=== PATIENT | female | born 1950 | race Caucasian/White ===

== ENCOUNTER → 2016-05-15 | Outpatient (REF) | payer BC ==
[2016-05-15 12:37] LABS: ALBUMIN 3.9 GM/DL (3.2-5.2); ALKALINE PHOSPHATASE 77 U/L (45-117); ALT/SGPT 25 U/L (12-78); ANION GAP 5 MEQ/L (8-16); AST/SGOT 10 U/L (15-37); BASO % 0.3 % (0.0-1.0); BILIRUBIN,TOTAL 0.5 MG/DL (0.2-1.0); BLOOD UREA NITROGEN 15 MG/DL (7-18); CALCIUM LEVEL 9.2 MG/DL (8.8-10.2); CARBON DIOXIDE LEVEL 29 MEQ/L (21-32); CHLORIDE LEVEL 108 MEQ/L (98-107); CREATININE FOR GFR 0.82 MG/DL (0.55-1.02); EOS # 0.1 K/mm3 (0.0-0.50); EOS % 3.2 % (0.0-3.0); GLOMERULAR FILTRATION RATE > 60.0 (>45); GLUCOSE, FASTING 96 MG/DL (80-110); LARGE UNSTAINED CELL # 0.1 K/mm3 (0.0-0.4); LYMPH # 1.5 K/mm3 (1.5-4.5); LYMPH % 34.9 % (24.0-44.0); MAGNESIUM LEVEL 1.8 MG/DL (1.8-2.4); MEAN CORPUSCULAR HEMOGLOBIN 31.7 pg (27.0-33.0); MEAN CORPUSCULAR HGB CONC 32.8 g/dl (32.0-36.5); MEAN CORPUSCULAR VOLUME 96.8 fl (80.0-96.0); MONO # 0.3 K/mm3 (0.0-0.8); MONO % 6.5 % (0.0-5.0); NEUTROPHILS # 2.2 K/mm3 (1.8-7.7); NEUTROPHILS % 52.1 % (36.0-66.0); PLATELET COUNT, AUTOMATED 229 k/mm3 (150-450); POTASSIUM SERUM 4.5 MEQ/L (3.5-5.1); RED CELL DISTRIBUTION WIDTH 12.3 % (11.5-14.5); SODIUM LEVEL 142 MEQ/L (136-145); TOTAL PROTEIN 6.5 GM/DL (6.4-8.2); WHITE BLOOD COUNT 4.2 K/mm3 (4.0-10.0)
== END ==
LOC: M SFHCPLAZ 08:26
PROVIDERS: ATTEND Family Medicine
DX: I10 Essential (primary) hypertension (principal)

== ENCOUNTER → 2016-11-08 | Outpatient (REF) | payer BC ==
[2016-11-08 13:18] LABS: VITAMIN B12 LEVEL 391 PG/ML (247-911)
[2016-11-08 13:29] LABS: ALBUMIN 3.5 GM/DL (3.2-5.2); ALBUMIN/GLOBULIN RATIO 1.17 (1.00-1.93); ALKALINE PHOSPHATASE 77 U/L (45-117); ALT/SGPT 24 U/L (12-78); ANION GAP 8 MEQ/L (8-16); AST/SGOT 9 U/L (15-37); BILIRUBIN,TOTAL 0.5 MG/DL (0.2-1.0); BLOOD UREA NITROGEN 14 MG/DL (7-18); CALCIUM LEVEL 9.4 MG/DL (8.8-10.2); CARBON DIOXIDE LEVEL 28 MEQ/L (21-32); CHLORIDE LEVEL 109 MEQ/L (98-107); CHOLESTEROL LEVEL 170 MG/DL (<200); CREATININE FOR GFR 0.78 MG/DL (0.55-1.02); GLOMERULAR FILTRATION RATE > 60.0 (>45); GLUCOSE, FASTING 97 MG/DL (80-110); POTASSIUM SERUM 4.5 MEQ/L (3.5-5.1); SODIUM LEVEL 145 MEQ/L (136-145); TOTAL PROTEIN 6.5 GM/DL (6.4-8.2); TRIGLYCERIDES LEVEL 81 MG/DL (<150)
[2016-11-13 12:29] LABS: ALBUMIN 3.89 GM/DL (3.29-5.55); ALBUMIN % 59.9 % (55.8-66.1)
== END ==
LOC: M SFHCPLAZ 08:25
PROVIDERS: ATTEND Family Medicine
DX: I10 Essential (primary) hypertension (principal); E55.9 Vitamin D deficiency, unspecified; D75.89 Other specified diseases of blood and blood-forming organs

== ENCOUNTER → 2016-11-09 | Outpatient (REF) | payer BC ==
[2016-11-09 12:37] LABS: PRETREATED FOLATE FOR RBCFOL 13.6 NG/ML
== END ==
LOC: M LAB 10:47
PROVIDERS: ATTEND Family Medicine
DX: I10 Essential (primary) hypertension (principal); E55.9 Vitamin D deficiency, unspecified; D75.89 Other specified diseases of blood and blood-forming organs

== ENCOUNTER → 2016-11-19 | Outpatient (CLI) | payer BC ==
--- NOTE | 2016-11-19 14:14 | REP ---
THYROID ULTRASOUND: Real-time sonographic evaluation of the thyroid performed. Comparison 12/04/2013. Both lobes of the thyroid are relatively normal in size, right lobe measuring 4.0 x 1.3 x 1.2 cm and left lobe 4.1 x 1.5 x 1.2 cm. There is a tiny cyst in the right upper pole 3 mm in diameter. Two solid appearing nodules are seen in the mid to lower right lobe, measuring 7 mm in diameter and 8 mm in diameter essentially unchanged compared to the prior exam. There is a solid nodule in the isthmus 7 mm in diameter. There are four solid nodules in the left lobe, the largest is in the mid aspect 1.5 x 0.7 x 1.4 cm similar to the prior study. The other three are subcentimeter in size. IMPRESSION: Similar findings compared to prior study 12/04/2013. Several small nodules are present. The largest are essentially unchanged since the prior ultrasound. Signed by Ortega Tavares MD 11/19/2016 04:12 P
== END ==
LOC: M RAD 12:41
PROVIDERS: ATTEND Family Medicine
DX: E04.2 Nontoxic multinodular goiter (principal)

== ENCOUNTER → 2017-01-02 | Outpatient (CLI) | payer BC ==
--- NOTE | 2017-01-02 09:56 | REPMRS ---
Patient History The patient states she has not had a clinical breast exam in over a year. Patient is postmenopausal. Family history of breast cancer in maternal cousin under age 50. Digital Mammo Screening Bilat: January 02, 2017 - Exam #: [id number] Bilateral CC and MLO view(s) were taken. Technologist: Renetta Coombs, Technologist Prior study comparison: December 08, 2015, bilateral digital mammo screening bilat performed at [facility]. December 06, 2014, bilateral digital mammo screening bilat performed at [facility]. FINDINGS: The breast tissue is heterogeneously dense. This may lower the sensitivity of mammography. There is a fairly symmetric fibroglandular pattern in both breasts. There has been no interval development of masses, areas of architectural distortion or clusters of microcalcifications typical of malignancy. No significant changes when compared with prior studies. ASSESSMENT: BI-RADS/ACR category 2 mammogram. Benign finding(s). Recommendation Routine screening mammogram of both breasts in 1 year (for women over age 40). This mammogram was interpreted with the aid of an FDA-approved computer-aided dectection system. Electronically Signed By: Ortega Tavares MD 01/02/17 0952
== END ==
LOC: M RAD 08:44
PROVIDERS: ATTEND Family Medicine
DX: Z12.31 Encounter for screening mammogram for malignant neoplasm of breast (principal)

== ENCOUNTER → 2017-04-09 | Outpatient (REF) | payer BC ==
[2017-04-09 12:56] LABS: BASO % 0.4 % (0.0-1.0); EOS # 0.2 10^3/uL (0.0-0.50); EOS % 3.8 % (0.0-3.0); HEMATOCRIT 38.6 % (36.0-47.0); IMMATURE GRANULOCYTE % 0.2 % (0-3.0); LYMPH # 1.8 10^3/uL (1.5-4.5); LYMPH % 38.9 % (24.0-44.0); MEAN CORPUSCULAR HEMOGLOBIN 31.8 pg (27.0-33.0); MEAN CORPUSCULAR HGB CONC 33.7 g/dl (32.0-36.5); MEAN CORPUSCULAR VOLUME 94.4 fl (80.0-96.0); MONO # 0.5 10^3/uL (0.0-0.8); NEUTROPHILS # 2.1 10^3/uL (1.8-7.7); NEUTROPHILS % 46.7 % (36.0-66.0); PLATELET COUNT, AUTOMATED 231 10^3/uL (150-450); PTH INTACT 53.1 PG/ML (18.5-88.0); RED BLOOD COUNT 4.09 10^6/uL (4.00-5.40); RED CELL DISTRIBUTION WIDTH 12.4 % (11.5-14.5); TOTAL 25(OH) VITAMIN D 39.5 NG/ML (30.0-100.0); WHITE BLOOD COUNT 4.5 10^3/uL (4.0-10.0)
[2017-04-09 13:01] LABS: ALBUMIN 3.7 GM/DL (3.2-5.2); ALBUMIN/GLOBULIN RATIO 1.32 (1.00-1.93); ALKALINE PHOSPHATASE 72 U/L (45-117); ALT/SGPT 28 U/L (12-78); ANION GAP 8 MEQ/L (8-16); AST/SGOT 21 U/L (7-37); BILIRUBIN,TOTAL 0.8 MG/DL (0.2-1.0); BLOOD UREA NITROGEN 13 MG/DL (7-18); CALCIUM LEVEL 9.5 MG/DL (8.8-10.2); CARBON DIOXIDE LEVEL 29 MEQ/L (21-32); CHLORIDE LEVEL 107 MEQ/L (98-107); CREATININE FOR GFR 0.78 MG/DL (0.55-1.30); GLOMERULAR FILTRATION RATE > 60.0 (>45); GLUCOSE, FASTING 89 MG/DL (70-100); MAGNESIUM LEVEL 1.8 MG/DL (1.8-2.4); POTASSIUM SERUM 4.1 MEQ/L (3.5-5.1); SODIUM LEVEL 144 MEQ/L (136-145); TOTAL PROTEIN 6.5 GM/DL (6.4-8.2)
[2017-04-09 13:36] LABS: ESTIMATED AVERAGE GLUCOSE 103 MG/DL (60-110); HEMOGLOBIN A1c 5.2 %
[2017-04-10 14:14] LABS: INSULIN LEVEL 10.7 uIU/mL (2.6-24.9)
== END ==
LOC: M SFHCPLAZ 08:38
DX: E66.3 Overweight (principal); E55.9 Vitamin D deficiency, unspecified
CPT/HCPCS: 83525

== ENCOUNTER → 2017-09-09 | Outpatient (REF) | payer BC ==
[2017-09-09 11:31] LABS: RETIC HEMOGLOBIN EQUIVALENT 36.8 pg (24-36); RETICULOCYTE # 96.6 10^9/L (17-77); RETICULOCYTE % 2.4 % (0.5-1.5)
[2017-09-09 12:04] LABS: ALBUMIN 3.5 GM/DL (3.2-5.2); ALBUMIN/GLOBULIN RATIO 1.21 (1.00-1.93); ALKALINE PHOSPHATASE 78 U/L (45-117); ALT/SGPT 19 U/L (12-78); ANION GAP 9 MEQ/L (8-16); AST/SGOT 10 U/L (7-37); BILIRUBIN,TOTAL 0.6 MG/DL (0.2-1.0); BLOOD UREA NITROGEN 14 MG/DL (7-18); C REACTIVE PROTEIN QUANTITATIV 0.36 MG/DL (0.00-0.30); CALCIUM LEVEL 9.1 MG/DL (8.8-10.2); CARBON DIOXIDE LEVEL 28 MEQ/L (21-32); CHLORIDE LEVEL 109 MEQ/L (98-107); CHOLESTEROL LEVEL 162 MG/DL (<200); CHOLESTEROL RISK RATIO 3.115 (<5); CPK CREATINE PHOSPHOKINASE 39 U/L (26-192); CREATININE FOR GFR 0.84 MG/DL (0.55-1.30); FREE T4 0.89 NG/DL (0.76-1.46); GLOMERULAR FILTRATION RATE > 60.0 (>45); GLUCOSE, FASTING 96 MG/DL (70-100); HDL CHOLESTEROL 52 MG/DL (>40); LDL CHOLESTEROL 78.8 MG/DL (<100); MAGNESIUM LEVEL 1.9 MG/DL (1.8-2.4); NON-HDL-C 110 MG/DL; POTASSIUM SERUM 4.4 MEQ/L (3.5-5.1); SODIUM LEVEL 146 MEQ/L (136-145); TOTAL PROTEIN 6.4 GM/DL (6.4-8.2); TRIGLYCERIDES LEVEL 156 MG/DL (<150)
== END ==
LOC: M SFHCPLAZ 08:40
DX: I10 Essential (primary) hypertension (principal)
CPT/HCPCS: 82550

== ENCOUNTER 2017-12-06 20:24 | Emergency (ER) | payer BC ==
[2017-12-06] MEDS: ALPRAZolam 0.25 MG TAB PO (22:25)
== END 2017-12-06 23:49 | disposition home or self-care (01) ==
LOC: M ED 20:24
DX: I10 Essential (primary) hypertension (principal); F41.1 Generalized anxiety disorder; Z79.899 Other long term (current) drug therapy
CPT/HCPCS: 93005

== ENCOUNTER → 2018-01-07 | Outpatient (CLI) | payer BC, MEDICARE | LOC: M RAD 09:01 | DX: Z12.31 Encounter for screening mammogram for malignant neoplasm of breast (principal) | CPT/HCPCS: 77067 ==

== ENCOUNTER → 2018-01-28 | Outpatient (REF) | payer BC ==
[2018-01-28 10:51] LABS: ALBUMIN 3.3 GM/DL (3.2-5.2); ALBUMIN/GLOBULIN RATIO 1.03 (1.00-1.93); ALKALINE PHOSPHATASE 83 U/L (45-117); ALT/SGPT 25 U/L (12-78); ANION GAP 4 MEQ/L (8-16); AST/SGOT 11 U/L (7-37); BILIRUBIN,TOTAL 0.6 MG/DL (0.2-1.0); BLOOD UREA NITROGEN 11 MG/DL (7-18); CARBON DIOXIDE LEVEL 30 MEQ/L (21-32); CHLORIDE LEVEL 108 MEQ/L (98-107); CREATININE FOR GFR 0.77 MG/DL (0.55-1.30); GLOMERULAR FILTRATION RATE > 60.0 (>45); GLUCOSE, FASTING 97 MG/DL (70-100); POTASSIUM SERUM 4.9 MEQ/L (3.5-5.1); SODIUM LEVEL 142 MEQ/L (136-145); TOTAL PROTEIN 6.5 GM/DL (6.4-8.2)
[2018-01-28 10:53] LABS: PTH INTACT 76.7 PG/ML (18.5-88.0); TOTAL 25(OH) VITAMIN D 39.4 NG/ML (30.0-100.0)
[2018-01-28 10:55] LABS: APPEARANCE, URINE CLEAR (CLEAR); BACTERIA, URINE AUTO NEGATIVE (NEGATIVE); BILIRUBIN, URINE AUTO NEGATIVE (NEGATIVE); BLOOD, URINE BLOOD NEGATIVE (NEGATIVE); COLOR, URINE YELLOW (YELLOW); GLUCOSE, URINE (UA) AUTO NEGATIVE (NEGATIVE); KETONE, URINE AUTO NEGATIVE (NEGATIVE); LEUKOCYTE ESTERASE, URINE AUTO NEGATIVE (NEGATIVE); NITRITE, URINE AUTO NEGATIVE (NEGATIVE); PROTEIN, URINE AUTO NEGATIVE (NEGATIVE); RBC, URINE AUTO 0 /HPF (0-3); SPECIFIC GRAVITY URINE AUTO 1.016 (1.002-1.035); SQUAMOUS EPITHELIAL CELL UR AU 0 /HPF (0-6); UROBILINOGEN, URINE AUTO 0.2 mg/dL (0.0-2.0); WBC, URINE AUTO 0 /HPF (0-3)
[2018-01-28 11:06] LABS: MALB URINE SIEMENS 7.2 MG/L; MAU/CREAT RATIO 6.1 MCG/MG (0.0-30.0)
[2018-01-28 13:00] LABS: ESTIMATED AVERAGE GLUCOSE 108 MG/DL (60-110); HEMOGLOBIN A1c 5.4 %
[2018-01-29 14:21] LABS: INSULIN LEVEL 17.1 uIU/mL (2.6-24.9)
== END ==
LOC: M SFHCPLAZ 08:17
DX: I10 Essential (primary) hypertension (principal); R73.01 Impaired fasting glucose; E55.9 Vitamin D deficiency, unspecified
CPT/HCPCS: 83525

== ENCOUNTER → 2018-07-28 | Outpatient (REF) | payer BC ==
[~2018-07-28] MED LIST: AMLO5TAB6 PO; CARV3.12; IRBE75TA5; PARO5TAB
[2018-07-28 11:36] LABS: BASO % 0.4 % (0.0-1.0); EOS # 0.1 10^3/uL (0.0-0.50); HEMATOCRIT 39.5 % (36.0-47.0); HEMOGLOBIN 13.1 g/dl (12.0-15.5); LYMPH # 1.9 10^3/uL (1.5-4.5); LYMPH % 40.8 % (24.0-44.0); MEAN CORPUSCULAR HEMOGLOBIN 32.3 pg (27.0-33.0); MEAN CORPUSCULAR HGB CONC 33.2 g/dl (32.0-36.5); MEAN CORPUSCULAR VOLUME 97.5 fl (80.0-96.0); MONO # 0.5 10^3/uL (0.0-0.8); MONO % 10.9 % (0.0-5.0); NEUTROPHILS # 2.1 10^3/uL (1.8-7.7); NEUTROPHILS % 44.7 % (36.0-66.0); PLATELET COUNT, AUTOMATED 230 10^3/uL (150-450); RED BLOOD COUNT 4.05 10^6/uL (4.00-5.40); WHITE BLOOD COUNT 4.7 10^3/uL (4.0-10.0)
[2018-07-28 12:00] LABS: HEMOGLOBIN A1c 5.2 %
[2018-07-28 12:09] LABS: ALBUMIN 3.6 GM/DL (3.2-5.2); ALT/SGPT 23 U/L (12-78); BILIRUBIN,TOTAL 0.5 MG/DL (0.2-1.0); BLOOD UREA NITROGEN 14 MG/DL (7-18); CALCIUM LEVEL 9.6 MG/DL (8.8-10.2); CARBON DIOXIDE LEVEL 28 MEQ/L (21-32); CHLORIDE LEVEL 108 MEQ/L (98-107); CREATININE FOR GFR 0.79 MG/DL (0.55-1.30); GLOMERULAR FILTRATION RATE > 60.0 (>45); GLUCOSE, FASTING 87 MG/DL (70-100); POTASSIUM SERUM 4.4 MEQ/L (3.5-5.1); SODIUM LEVEL 143 MEQ/L (136-145); TOTAL PROTEIN 6.5 GM/DL (6.4-8.2)
[2018-07-28 12:16] LABS: VITAMIN B12 LEVEL 494 PG/ML (247-911)
== END ==
LOC: M SFHCPLAZ 10:08
PROVIDERS: ATTEND Family Medicine
DX: D75.89 Other specified diseases of blood and blood-forming organs (principal); I10 Essential (primary) hypertension

== ENCOUNTER 2018-10-22 08:18 | Day surgery (SDC) | payer BC ==
[~2018-10-22] VITALS: Ht 165.1 cm; Wt 77.1 kg
[~2018-10-22 08:18] MED LIST changes: +CALCCAP4 PO; +CHOL100029 PO; +IRBE75TA5 PO; +LIDOCAINE 2% INJ 100 MG/5 ML SDV (FOR ANES.) As Ordered ONE; +LORA-243 PO; +NS 1,000 ML IV ONE
[2018-10-22] MEDS ORDERED: PROPOFOL 200 MG/20 ML VIAL As Ordered ONE ×2 (09:56→10:10)
--- NOTE | 2018-10-22 10:29 | ROOR ---
Patient Name: Dede Hamm Procedure Date: 10/22/2018 9:54 AM Date of : 1950 Age: 68 Room: [facility] Gender: Female Note Status: Finalized Procedure: Total Colonoscopy to Cecum + Hot + Cold Snare Polypectomy + Hemocips Indications: High risk colon cancer surveillance: Personal history of colonic polyps, Last colonoscopy: 2014 Providers: Justice Foy MD Referring MD: Suraj Motley MD Requesting Provider: Medicines: Monitored Anesthesia Care Complications: No immediate complications. Procedure: Pre-Anesthesia Assessment: - The heart rate, respiratory rate, oxygen saturations, blood pressure, adequacy of pulmonary ventilation, and response to care were monitored throughout the procedure. The Colonoscope was introduced through the anus and advanced to the cecum, identified by appendiceal orifice and ileocecal valve. The colonoscopy was performed without difficulty. The patient tolerated the procedure well. The quality of the bowel preparation was excellent. Findings: The perianal and digital rectal examinations were normal. Non-bleeding internal hemorrhoids were found during retroflexion. The hemorrhoids were small and Grade I (internal hemorrhoids that do not prolapse). A large polyp was found at 10 cm proximal to the anus. The polyp was pedunculated. The polyp was removed with a hot snare. Resection and retrieval were complete. To prevent bleeding after the polypectomy, two hemostatic clips were successfully placed (MR conditional). There was no bleeding at the end of the procedure. A medium polyp was found at 25 cm proximal to the anus. The polyp was sessile. The polyp was removed with a cold snare. Resection and retrieval were complete. To prevent bleeding after the polypectomy, one hemostatic clip was successfully placed (MR conditional). There was no bleeding at the end of the procedure. A medium polyp was found at 50 cm proximal to the anus. The polyp was sessile. The polyp was removed with a cold snare. Resection and retrieval were complete. To prevent bleeding after the polypectomy, one hemostatic clip was successfully placed (MR conditional). There was no bleeding at the end of the procedure. The exam was otherwise without abnormality on direct and retroflexion views. The terminal ileum appeared normal. Impression: - Non-bleeding internal hemorrhoids. - One large polyp at 10 cm proximal to the anus, removed with a hot snare. Resected and retrieved. Clips (MR conditional) were placed. - One medium polyp at 25 cm proximal to the anus, removed with a cold snare. Resected and retrieved. Clip (MR conditional) was placed. - One medium polyp at 50 cm proximal to the anus, removed with a cold snare. Resected and retrieved. Clip (MR conditional) was placed. - The examination was otherwise normal on direct and retroflexion views. - The examined portion of the ileum was normal. - The exam was otherwise normal to the cecum. Recommendation: - Patient has a contact number available for emergencies. The signs and symptoms of potential delayed complications were discussed with the patient. Return to normal activities tomorrow. Written discharge instructions were provided to the patient. - High fiber diet. - Discharge patient to home. - Continue present medications. - Await pathology results. - Telephone GI clinic for pathology results in 1 week. - Repeat colonoscopy for surveillance based on pathology results. - Return to referring physician. - The findings and recommendations were discussed with the patient's family. Justice Foy MD Justice Foy MD 10/22/2018 10:29:05 AM Electronically signed by Justice Foy MD Number of Addenda: 0 Note Initiated On: 10/22/2018 9:54 AM Estimated Blood Loss: Estimated blood loss: none.
[2018-10-22 10:40] VITALS: BP 126/83
== END 2018-10-22 11:01 | disposition home or self-care (01) ==
LOC: M OPP 08:18
PROVIDERS: ATTEND Internal Medicine Gastroenterology
DX: Z12.11 Encounter for screening for malignant neoplasm of colon (principal); Z86.010 Personal history of colon polyps; K64.0 First degree hemorrhoids; D12.6 Benign neoplasm of colon, unspecified

== ENCOUNTER → 2019-01-02 | Outpatient (REF) | payer BC ==
[~2019-01-02] MED LIST changes: -LIDOCAINE 2% INJ 100 MG/5 ML SDV (FOR ANES.) As Ordered ONE; -NS 1,000 ML IV ONE
[2019-01-02 10:20] LABS: APPEARANCE, URINE CLEAR (CLEAR); BACTERIA, URINE AUTO NEGATIVE (NEGATIVE); BILIRUBIN, URINE AUTO NEGATIVE (NEGATIVE); BLOOD, URINE BLOOD NEGATIVE (NEGATIVE); COLOR, URINE YELLOW (YELLOW); GLUCOSE, URINE (UA) AUTO NEGATIVE (NEGATIVE); KETONE, URINE AUTO NEGATIVE (NEGATIVE); LEUKOCYTE ESTERASE, URINE AUTO NEGATIVE (NEGATIVE); MUCUS, URINE SMALL (NEGATIVE); NITRITE, URINE AUTO NEGATIVE (NEGATIVE); PROTEIN, URINE AUTO NEGATIVE (NEGATIVE); RBC, URINE AUTO 1 /HPF (0-3); SPECIFIC GRAVITY URINE AUTO 1.017 (1.002-1.035); SQUAMOUS EPITHELIAL CELL UR AU 1 /HPF (0-6); UROBILINOGEN, URINE AUTO 0.2 mg/dL (0.0-2.0); WBC, URINE AUTO 1 /HPF (0-3)
[2019-01-02 10:43] LABS: HEMOGLOBIN A1c 5.1 %
[2019-01-02 10:49] LABS: ALBUMIN 3.5 GM/DL (3.2-5.2); ALT/SGPT 20 U/L (12-78); BILIRUBIN,TOTAL 0.8 MG/DL (0.2-1.0); BLOOD UREA NITROGEN 14 MG/DL (7-18); CALCIUM LEVEL 9.8 MG/DL (8.8-10.2); CARBON DIOXIDE LEVEL 31 MEQ/L (21-32); CHLORIDE LEVEL 106 MEQ/L (98-107); CHOLESTEROL LEVEL 164 MG/DL (<200); CHOLESTEROL RISK RATIO 2.877 (<5); CREATININE FOR GFR 0.92 MG/DL (0.55-1.30); GLOMERULAR FILTRATION RATE > 60.0 (>45); GLUCOSE, FASTING 92 MG/DL (70-100); HDL CHOLESTEROL 57 MG/DL (>40); LDL CHOLESTEROL 86 MG/DL (<100); NON-HDL-C 107 MG/DL; POTASSIUM SERUM 4.7 MEQ/L (3.5-5.1); SODIUM LEVEL 142 MEQ/L (136-145); TOTAL PROTEIN 6.8 GM/DL (6.4-8.2); TRIGLYCERIDES LEVEL 105 MG/DL (<150)
[2019-01-02 10:58] LABS: MALB URINE SIEMENS 6.6 MG/L
== END ==
LOC: M SFHCPLAZ 08:08
PROVIDERS: ATTEND Family Medicine
DX: E78.2 Mixed hyperlipidemia (principal); R73.01 Impaired fasting glucose

== ENCOUNTER → 2019-02-03 | Outpatient (CLI) | payer BC ==
--- NOTE | 2019-02-03 11:30 | REPMRS ---
Patient History The patient states she has not had a clinical breast exam in over a year. Family history of breast cancer under age 50 in maternal cousin. Digital Woman Screen Mammo: February 03, 2019 - Exam #: [id number] Bilateral CC and MLO view(s) were taken. Technologist: Jenny Ware, Technologist Prior study comparison: January 07, 2018, bilateral digital mammo screening bilat, performed at [facility]. January 02, 2017, bilateral digital mammo screening bilat, performed at [facility]. December 08, 2015, bilateral digital mammo screening bilat, performed at [facility]. FINDINGS: The breast tissue is heterogeneously dense. This may lower the sensitivity of mammography. There are widely dispersed microcalcifications in dense breast stroma and multiple stable nodular opacities are seen bilaterally unchanged. There is a moderate amount of heterogeneously dense fibroglandular tissue which is fairly symmetric. There is no interval development of dominant mass, architectural distortion, or grouped microcalcification typical of malignancy. There has been no change in the appearance of the mammogram from the prior studies. 3-D tomosynthesis shows no additional findings. Assessment: BI-RADS/ACR category 2 mammogram. Benign Findings. Recommendation Routine screening mammogram of both breasts in 1 year (for women over age 40). This patient's Lifetime Breast Cancer RIsk is estimated at 5.2 %. This mammogram was interpreted with the aid of an FDA-approved computer-aided dectection system. Electronically Signed By: Al Edmondson MD 02/03/19 [id number]
--- NOTE | 2019-02-10 08:20 | DEXA ---
AP SPINE L1 - L4 1.150 -0.4 1.3 LT FEMUR TOTAL 0.820 -1.5 -0.1 LT NECK 0.864 -1.3 0.4 RT FEMUR TOTAL 0.945 -0.5 0.9 RT NECK 0.923 -0.8 0.8 TOTAL BODY TOTAL OTHER COMMENTS: Normal bone densitometry of the spine. Normal bone densitometry of the left hip. There is low bone density of the right hip. The density of the spine has decreased 3.9% since the initial exam on 02/26/2003. The spine density has decreased 2.9% since the most recent exam on 01/05/2016. The density of the left hip has decreased 8.1% since the initial exam on 02/26/2003. The density of the left hip has decreased 4.3% since the most recent exam on 01/05/2016. The density of the right hip has decreased 7.4% since the initial exam on 02/26/2003. The density of the right hip has decreased 6.0% since the most recent exam on 01/05/2016. FOLLOW-UP: Recommendation for the next bone density exam: 2 years. HUMPHREY
== END ==
LOC: M WHC 08:48
PROVIDERS: ATTEND Family Medicine
DX: Z12.31 Encounter for screening mammogram for malignant neoplasm of breast (principal); E55.9 Vitamin D deficiency, unspecified; Z80.3 Family history of malignant neoplasm of breast; R92.0 Mammographic microcalcification found on diagnostic imaging of breast; M85.851 Other specified disorders of bone density and structure, right thigh

== ENCOUNTER → 2019-02-26 | Outpatient (CLI) | payer BC ==
--- NOTE | 2019-02-27 03:23 | REP ---
Clinical: Multinodular goiter. Comparison: 11/19/2016. Technique: Real time serra scale and color evaluation using high frequency transducer. Findings: Right thyroid lobe measures 4.3 x 2.0 x 1.3 cm and includes solid upper pole nodule measuring 8 x 8 x 5 mm, solid mid pole nodule measuring 8 x 6 x 5 mm, and solid lower pole nodule measuring 8 x 8 x 4 mm. Left thyroid lobe measures 4.4 x 1.3 x 1.4 cm and includes solid upper pole nodule measuring 7 x 5 x 4 mm and 8 x 7 x 4 mm along with solid mid pole nodule measuring 1.8 x 1.5 x 0.8 cm. Isthmus measures 3 mm in width 8 x 7 x 4 mm nodule along the left side of the isthmus. Impression: Nonspecific solid nodules relatively similar to prior examination.
== END ==
LOC: M WHC 08:43
PROVIDERS: ATTEND Family Medicine
DX: E04.2 Nontoxic multinodular goiter (principal)

== ENCOUNTER → 2019-09-15 | Outpatient (REF) | payer BC ==
[~2019-09-15] MED LIST changes: +AMLO1TAB24 PO; -AMLO5TAB6 PO; +IRBE75TA4; +IRBE75TA4 PO; -IRBE75TA5; -IRBE75TA5 PO
[2019-10-09 08:49] LABS: BASO % 0.3 % (0.0-1.0); EOS # 0.1 10^3/uL (0.0-0.5); EOS % 1.7 % (0.0-3.0); HEMATOCRIT 43.6 % (36.0-47.0); HEMOGLOBIN 14.4 g/dl (12.0-15.5); LYMPH # 1.7 10^3/uL (1.5-5.0); LYMPH % 28.5 % (24.0-44.0); MEAN CORPUSCULAR HEMOGLOBIN 32.1 pg (27.0-33.0); MEAN CORPUSCULAR VOLUME 97.1 fl (80.0-96.0); MONO # 0.6 10^3/uL (0.0-0.8); MONO % 9.5 % (0.0-5.0); NEUTROPHILS # 3.5 10^3/uL (1.5-8.5); NEUTROPHILS % 59.7 % (36.0-66.0); PLATELET COUNT, AUTOMATED 239 10^3/uL (150-450); RED BLOOD COUNT 4.49 10^6/uL (4.00-5.40); WHITE BLOOD COUNT 5.9 10^3/uL (4.0-10.0)
[2019-10-19 14:54] LABS: ALBUMIN 3.7 GM/DL (3.2-5.2); ALT/SGPT 19 U/L (12-78); BILIRUBIN,TOTAL 0.7 MG/DL (0.2-1.0); BLOOD UREA NITROGEN 14 MG/DL (7-18); CALCIUM LEVEL 9.6 MG/DL (8.8-10.2); CARBON DIOXIDE LEVEL 29 MEQ/L (21-32); CHLORIDE LEVEL 109 MEQ/L (98-107); CREATININE FOR GFR 0.92 MG/DL (0.55-1.30); GLOMERULAR FILTRATION RATE > 60.0 (>45); GLUCOSE, FASTING 97 MG/DL (70-100); MAGNESIUM LEVEL 1.9 MG/DL (1.8-2.4); POTASSIUM SERUM 4.4 MEQ/L (3.5-5.1); PTH INTACT 61.9 PG/ML (18.5-88.0); SODIUM LEVEL 143 MEQ/L (136-145); TOTAL 25(OH) VITAMIN D 48.9 NG/ML (30.0-100.0); TOTAL PROTEIN 6.9 GM/DL (6.4-8.2); VITAMIN B12 LEVEL 400 PG/ML (247-911)
[2019-11-17 07:29] LABS: ALBUMIN % 60.8 % (55.8-66.1); ALPHA-1-GLOBULIN % 4.7 % (2.9-4.9); ALPHA-1-GLOBULINS 0.32 GM/DL (0.17-0.41); ALPHA-2-GLOBULINS 0.64 GM/DL (0.42-0.99); ALPHA-2-GLOBULINS % 9.3 % (7.1-11.8); BETA-1-GLOBULINS % 5.8 % (4.7-7.2); BETA-2-GLOBULINS 0.34 GM/DL (0.19-0.55); BETA-2-GLOBULINS % 4.9 % (3.2-6.5); GAMMA GLOBULIN % 14.5 % (11.1-18.8)
== END ==
LOC: M PLALAB 15:31
PROVIDERS: ATTEND Family Medicine
DX: D75.89 Other specified diseases of blood and blood-forming organs (principal); I10 Essential (primary) hypertension; E55.9 Vitamin D deficiency, unspecified

== ENCOUNTER → 2020-01-16 | Outpatient (CLI) | payer BC ==
[~2020-01-16] MED LIST changes: +CAL-TAB4 PO; +GARL1000 PO; +IRBE150T7 PO; +ULTR5TAB PO
== END ==
LOC: M LABSMTC 09:11
PROVIDERS: ATTEND Anesthesiology
DX: Z01.812 Encounter for preprocedural laboratory examination (principal); Z20.828 Contact with and (suspected) exposure to other viral communicable diseases

== ENCOUNTER 2020-01-20 07:45 | Day surgery (SDC) | payer BC ==
[~2020-01-20] VITALS: Ht 165.1 cm; Wt 81.4 kg
[~2020-01-20 07:45] MED LIST changes: +NS 1,000 ML IV ONE
[2020-01-20] MEDS ORDERED: propofoL 200 MG/20 ML VIAL As Ordered ONE (09:58)
--- NOTE | 2020-01-20 09:58 | ROOR ---
Patient Name: Dede Hamm Procedure Date: 01/20/2020 9:33 AM Date of : 1950 Age: 69 Room: [facility] Gender: Female Note Status: Finalized Procedure: Total Colonoscopy to Cecum + Cold Snare Polypectomy + Biopsy Polypectomy Indications: High risk colon cancer surveillance: Personal history of colonic polyps, High risk colon cancer surveillance: Personal history of adenoma with villous component, Incidental - Follow-up for history of colon polyps of uncertain behavior Providers: Justice Foy MD Referring MD: Suraj Motley MD Requesting Provider: Medicines: Monitored Anesthesia Care Complications: No immediate complications. Procedure: Pre-Anesthesia Assessment: - The heart rate, respiratory rate, oxygen saturations, blood pressure, adequacy of pulmonary ventilation, and response to care were monitored throughout the procedure. The Colonoscope was introduced through the anus and advanced to the cecum, identified by appendiceal orifice and ileocecal valve. The colonoscopy was performed without difficulty. The patient tolerated the procedure well. The quality of the bowel preparation was excellent. Findings: The perianal and digital rectal examinations were normal. Non-bleeding internal hemorrhoids were found during retroflexion. The hemorrhoids were small and Grade I (internal hemorrhoids that do not prolapse). Scattered small-mouthed diverticula were found in the recto-sigmoid colon, sigmoid colon and descending colon. A diminutive polyp was found at 10 cm proximal to the anus. The polyp was sessile. The polyp was removed with a cold biopsy forceps. Resection and retrieval were complete. A diminutive polyp was found at 20 cm proximal to the anus. The polyp was sessile. The polyp was removed with a cold biopsy forceps. Resection and retrieval were complete. Multiple sessile polyps were found at 40 cm proximal to the anus. The polyps were small in size. These polyps were removed with a cold snare. Resection and retrieval were complete. The exam was otherwise without abnormality on direct and retroflexion views. Impression: - Non-bleeding internal hemorrhoids. - Diverticulosis in the recto-sigmoid colon, in the sigmoid colon and in the descending colon. - One diminutive polyp at 10 cm proximal to the anus, removed with a cold biopsy forceps. Resected and retrieved. - One diminutive polyp at 20 cm proximal to the anus, removed with a cold biopsy forceps. Resected and retrieved. - Multiple small polyps at 40 cm proximal to the anus, removed with a cold snare. Resected and retrieved. - The examination was otherwise normal on direct and retroflexion views. - The exam was otherwise normal to the cecum. Recommendation: - Patient has a contact number available for emergencies. The signs and symptoms of potential delayed complications were discussed with the patient. Return to normal activities tomorrow. Written discharge instructions were provided to the patient. - High fiber diet. - Discharge patient to home. - Continue present medications. - Await pathology results. - Telephone GI clinic for pathology results in 1 week. - Repeat colonoscopy in 5 years for surveillance. - Return to referring physician. - The findings and recommendations were discussed with the patient. Procedure Code(s): --- Professional --- 55008, Colonoscopy, flexible; with removal of tumor(s), polyp(s), or other lesion(s) by snare technique 57151, 59, Colonoscopy, flexible; with biopsy, single or multiple Diagnosis Code(s): --- Professional --- K64.0, First degree hemorrhoids K63.5, Polyp of colon Z86.010, Personal history of colonic polyps K57.30, Diverticulosis of large intestine without perforation or abscess without bleeding CPT copyright 2019 [employer]. All rights reserved. The codes documented in this report are preliminary and upon hose inspector and patcher review may be revised to meet current compliance requirements. Justice Foy MD Justice Foy MD 01/20/2020 9:58:09 AM Electronically signed by Justice Foy MD Number of Addenda: 0 Note Initiated On: 01/20/2020 9:33 AM Estimated Blood Loss: Estimated blood loss: none.
[2020-01-20 10:36] VITALS: BP 119/72
== END 2020-01-20 10:36 | disposition home or self-care (01) ==
LOC: M OPP 07:45
PROVIDERS: ATTEND Internal Medicine Gastroenterology
DX: Z86.010 Personal history of colon polyps (principal); Z09 Encounter for follow-up examination after completed treatment for conditions other than malignant neoplasm; K63.5 Polyp of colon; K64.0 First degree hemorrhoids; K57.30 Diverticulosis of large intestine without perforation or abscess without bleeding; I10 Essential (primary) hypertension; Z79.899 Other long term (current) drug therapy

== ENCOUNTER → 2020-02-26 | Outpatient (REF) | payer BC ==
[~2020-02-26] MED LIST changes: -NS 1,000 ML IV ONE
[2020-02-26 10:38] LABS: BASO % 0.4 % (0.0-1.0); EOS # 0.1 10^3/uL (0.0-0.5); EOS % 2.6 % (0.0-3.0); HEMATOCRIT 39.7 % (36.0-47.0); HEMOGLOBIN 13.3 g/dl (12.0-15.5); LYMPH # 1.7 10^3/uL (1.5-5.0); LYMPH % 33.5 % (24.0-44.0); MEAN CORPUSCULAR HGB CONC 33.5 g/dl (32.0-36.5); MEAN CORPUSCULAR VOLUME 95.7 fl (80.0-96.0); MONO # 0.5 10^3/uL (0.0-0.8); NEUTROPHILS # 2.7 10^3/uL (1.5-8.5); NEUTROPHILS % 53.3 % (36.0-66.0); PLATELET COUNT, AUTOMATED 241 10^3/uL (150-450); RED BLOOD COUNT 4.15 10^6/uL (4.00-5.40)
[2020-02-26 11:09] LABS: ALBUMIN 3.6 GM/DL (3.2-5.2); ALT/SGPT 22 U/L (12-78); BILIRUBIN,TOTAL 0.6 MG/DL (0.2-1.0); BLOOD UREA NITROGEN 16 MG/DL (7-18); CALCIUM LEVEL 9.6 MG/DL (8.8-10.2); CARBON DIOXIDE LEVEL 28 MEQ/L (21-32); CHLORIDE LEVEL 110 MEQ/L (98-107); CHOLESTEROL LEVEL 178 MG/DL (<200); CHOLESTEROL RISK RATIO 3.016 (<5); CREATININE FOR GFR 0.83 MG/DL (0.55-1.30); FREE T4 1.04 NG/DL (0.76-1.46); GLOMERULAR FILTRATION RATE > 60.0 (>39); GLUCOSE, FASTING 104 MG/DL (70-100); HDL CHOLESTEROL 59 MG/DL (>40); LDL CHOLESTEROL 94 MG/DL (<100); NON-HDL-C 119 MG/DL; POTASSIUM SERUM 4.2 MEQ/L (3.5-5.1); SODIUM LEVEL 142 MEQ/L (136-145); TOTAL PROTEIN 6.5 GM/DL (6.4-8.2); TRIGLYCERIDES LEVEL 123 MG/DL (<150)
[2020-02-26 11:32] LABS: PTH INTACT 53.2 PG/ML (18.5-88.0); TOTAL 25(OH) VITAMIN D 56.4 NG/ML (30.0-100.0)
== END ==
LOC: M SFHCPLAZ 08:04
PROVIDERS: ATTEND Family Medicine
DX: I10 Essential (primary) hypertension (principal); E55.9 Vitamin D deficiency, unspecified; M85.80 Other specified disorders of bone density and structure, unspecified site; E78.2 Mixed hyperlipidemia; E04.2 Nontoxic multinodular goiter

== ENCOUNTER → 2020-04-15 | Outpatient (CLI) | payer BC ==
--- NOTE | 2020-04-15 10:05 | REPMRS ---
Patient History The patient states she has not had a clinical breast exam in over a year. Patient is postmenopausal. Family history of breast cancer under age 50 in maternal cousin. Digital Woman Screen Mammo: April 15, 2020 - Exam #: [id number] Bilateral CC and MLO view(s) were taken. Technologist: Chayito Frausto, Technologist Prior study comparison: February 03, 2019, bilateral digital woman screen mammo performed at [facility]. January 07, 2018, bilateral digital mammo screening bilat, performed at [facility]. January 02, 2017, bilateral digital mammo screening bilat, performed at [facility]. FINDINGS: There are scattered fibroglandular densities. The Volpara volumetric breast density category is: B. There are widely dispersed microcalcifications in dense breast stroma and multiple stable nodular opacities are seen bilaterally unchanged. There is a moderate amount of residual fibroglandular tissue which is fairly symmetric. There is no interval development of dominant mass, architectural distortion, or grouped microcalcification typical of malignancy. There has been no change in the appearance of the mammogram from the prior studies. 3-D tomosynthesis shows no additional findings. Assessment: BI-RADS/ACR category 2 mammogram. Benign Findings. Recommendation Routine screening mammogram of both breasts in 1 year (for women over age 40). This patient's [facility] Lifetime Breast Cancer RIsk is estimated at 4.9 %. This mammogram was interpreted with the aid of an FDA-approved computer-aided dectection system. Electronically Signed By: Al Edmondson MD 04/15/20 [id number]
== END ==
LOC: M WHC 08:45
PROVIDERS: ATTEND Family Medicine
DX: Z12.31 Encounter for screening mammogram for malignant neoplasm of breast (principal); R92.0 Mammographic microcalcification found on diagnostic imaging of breast; Z85.3 Personal history of malignant neoplasm of breast; Z78.0 Asymptomatic menopausal state

== ENCOUNTER → 2020-06-29 | Outpatient (REF) | payer BC ==
[2020-06-29 10:43] LABS: HEMOGLOBIN A1c 5.1 %
[2020-06-29 10:44] LABS: ALBUMIN 3.8 GM/DL (3.2-5.2); ALT/SGPT 29 U/L (12-78); BILIRUBIN,TOTAL 0.6 MG/DL (0.2-1.0); BLOOD UREA NITROGEN 15 MG/DL (7-18); CARBON DIOXIDE LEVEL 29 MEQ/L (21-32); CHLORIDE LEVEL 107 MEQ/L (98-107); CREATININE FOR GFR 0.74 MG/DL (0.55-1.30); GLOMERULAR FILTRATION RATE > 60.0 (>39); GLUCOSE, FASTING 97 MG/DL (70-100); POTASSIUM SERUM 4.4 MEQ/L (3.5-5.1); SODIUM LEVEL 140 MEQ/L (136-145)
[2020-06-29 13:18] LABS: VITAMIN B12 LEVEL 402 PG/ML (247-911)
[2020-06-30 10:35] LABS: ALBUMIN 4.12 GM/DL (3.29-5.55); ALBUMIN % 58.8 % (55.8-66.1); ALPHA-1-GLOBULIN % 4.5 % (2.9-4.9); ALPHA-1-GLOBULINS 0.32 GM/DL (0.17-0.41); ALPHA-2-GLOBULINS 0.73 GM/DL (0.42-0.99); ALPHA-2-GLOBULINS % 10.4 % (7.1-11.8); BETA-1-GLOBULINS 0.36 GM/DL (0.28-0.60); BETA-1-GLOBULINS % 5.1 % (4.7-7.2); BETA-2-GLOBULINS 0.42 GM/DL (0.19-0.55); GAMMA GLOBULIN % 15.2 % (11.1-18.8); GAMMA GLOBULINS 1.06 GM/DL (0.65-1.58)
== END ==
LOC: M PLALAB 08:06
PROVIDERS: ATTEND Family Medicine
DX: I10 Essential (primary) hypertension (principal); D75.89 Other specified diseases of blood and blood-forming organs

== ENCOUNTER → 2020-07-07 | Outpatient (REF) | payer BC ==
[2020-07-07 16:10] LABS: FREE T4 0.94 NG/DL (0.76-1.46); PERCENT SATURATION 45.2 % (13.2-45.0); THYROID STIMULATING HORMONE 1.04 uIU/ML (0.358-3.740)
== END ==
LOC: M SFHCPLAZ 13:17
PROVIDERS: ATTEND Family Medicine
DX: L65.9 Nonscarring hair loss, unspecified (principal)

== ENCOUNTER → 2020-11-28 | Outpatient (CLI) | payer BC ==
[2020-11-28 13:53] LABS: BASO % 0.6 % (0.0-1.0); EOS # 0.4 10^3/uL (0.0-0.5); EOS % 7.2 % (0.0-3.0); HEMATOCRIT 41.3 % (36.0-47.0); HEMOGLOBIN 13.6 g/dl (12.0-15.5); LYMPH # 1.8 10^3/uL (1.5-5.0); LYMPH % 36.8 % (24.0-44.0); MEAN CORPUSCULAR HEMOGLOBIN 31.7 pg (27.0-33.0); MEAN CORPUSCULAR HGB CONC 32.9 g/dl (32.0-36.5); MEAN CORPUSCULAR VOLUME 96.3 fl (80.0-96.0); MONO # 0.7 10^3/uL (0.0-0.8); MONO % 13.3 % (2.0-8.0); NEUTROPHILS # 2.1 10^3/uL (1.5-8.5); NEUTROPHILS % 41.7 % (36.0-66.0); PLATELET COUNT, AUTOMATED 222 10^3/uL (150-450); RED BLOOD COUNT 4.29 10^6/uL (4.00-5.40)
[2020-11-28 14:44] LABS: ALBUMIN 3.3 GM/DL (3.2-5.2); ALT/SGPT 25 U/L (12-78); BILIRUBIN,TOTAL 0.3 MG/DL (0.2-1.0); BLOOD UREA NITROGEN 18 MG/DL (7-18); CALCIUM LEVEL 9.4 MG/DL (8.8-10.2); CARBON DIOXIDE LEVEL 29 MEQ/L (21-32); CHLORIDE LEVEL 108 MEQ/L (98-107); CHOLESTEROL LEVEL 160 MG/DL (<200); CHOLESTEROL RISK RATIO 3.333 (<5); FERRITIN 118 NG/ML (8-252); GLOMERULAR FILTRATION RATE > 60.0 (>39); GLUCOSE, FASTING 95 MG/DL (70-100); HDL CHOLESTEROL 48 MG/DL (>40); LDL CHOLESTEROL 90 MG/DL (<100); NON-HDL-C 112 MG/DL; POTASSIUM SERUM 4.6 MEQ/L (3.5-5.1); PTH INTACT 50.5 PG/ML (18.5-88.0); SODIUM LEVEL 141 MEQ/L (136-145); TOTAL 25(OH) VITAMIN D 67.2 NG/ML (30.0-100.0); TOTAL PROTEIN 6.7 GM/DL (6.4-8.2); TRIGLYCERIDES LEVEL 110 MG/DL (<150); VITAMIN B12 LEVEL 419 PG/ML (247-911)
== END ==
LOC: M PLALAB 10:57
PROVIDERS: ATTEND Family Medicine
DX: D75.89 Other specified diseases of blood and blood-forming organs (principal); E55.9 Vitamin D deficiency, unspecified; E78.2 Mixed hyperlipidemia; M85.80 Other specified disorders of bone density and structure, unspecified site; L65.9 Nonscarring hair loss, unspecified

== ENCOUNTER → 2021-04-17 | Outpatient (CLI) | payer BC | LOC: M WHC 07:52 | PROVIDERS: ATTEND Family Medicine | DX: Z12.31 Encounter for screening mammogram for malignant neoplasm of breast (principal); M85.851 Other specified disorders of bone density and structure, right thigh; M85.852 Other specified disorders of bone density and structure, left thigh; R92.1 Mammographic calcification found on diagnostic imaging of breast; N63.11 Unspecified lump in the right breast, upper outer quadrant ==

== ENCOUNTER → 2021-05-03 | Outpatient (CLI) | payer BC | LOC: M WHC 08:53 | PROVIDERS: ATTEND Family Medicine | DX: Z12.31 Encounter for screening mammogram for malignant neoplasm of breast (principal); M81.0 Age-related osteoporosis without current pathological fracture ==

== ENCOUNTER → 2021-05-23 | Outpatient (CLI) | payer BC ==
[2021-05-23 09:00] VITALS: BP 124/78
== END ==
LOC: M WHCPRO 07:52
PROVIDERS: ATTEND Family Medicine
DX: N60.22 Fibroadenosis of left breast (principal); N63.42 Unspecified lump in left breast, subareolar; R92.8 Other abnormal and inconclusive findings on diagnostic imaging of breast

== ENCOUNTER → 2021-06-06 | Outpatient (CLI) | payer BC ==
[2021-06-06 11:06] LABS: HEMOGLOBIN A1c 5.1 %
[2021-06-06 11:14] LABS: ALBUMIN 3.6 GM/DL (3.2-5.2); ALT/SGPT 23 U/L (12-78); BILIRUBIN,TOTAL 0.6 MG/DL (0.2-1.0); BLOOD UREA NITROGEN 10 MG/DL (7-18); C REACTIVE PROTEIN QUANTITATIV 0.68 MG/DL (0.00-0.30); CALCIUM LEVEL 9.5 MG/DL (8.8-10.2); CARBON DIOXIDE LEVEL 28 MEQ/L (21-32); CHLORIDE LEVEL 111 MEQ/L (98-107); CREATININE FOR GFR 0.84 MG/DL (0.55-1.30); FREE T4 1.06 NG/DL (0.76-1.46); GLOMERULAR FILTRATION RATE > 60.0 (>39); GLUCOSE, FASTING 98 MG/DL (70-100); POTASSIUM SERUM 4.1 MEQ/L (3.5-5.1); PTH INTACT 63.6 PG/ML (18.5-88.0); SODIUM LEVEL 144 MEQ/L (136-145); TOTAL 25(OH) VITAMIN D 59.6 NG/ML (30.0-100.0); TOTAL PROTEIN 6.5 GM/DL (6.4-8.2)
[2021-06-07 21:09] LABS: INSULIN LEVEL 14.4 uIU/mL (2.6-24.9); TESTOSTERONE FREE (DIRECT) 2.3 pg/mL (0.0-4.2)
== END ==
LOC: M PLALAB 08:15
PROVIDERS: ATTEND Family Medicine
DX: L65.9 Nonscarring hair loss, unspecified (principal); E04.2 Nontoxic multinodular goiter; R73.01 Impaired fasting glucose; E55.9 Vitamin D deficiency, unspecified; E78.2 Mixed hyperlipidemia

== ENCOUNTER → 2021-07-14 | Outpatient (CLI) | payer BC ==
[2021-07-14 11:26] LABS: BASO % 0.6 % (0.0-1.0); EOS # 0.1 10^3/uL (0.0-0.5); EOS % 1.7 % (0.0-3.0); HEMATOCRIT 40.5 % (36.0-47.0); HEMOGLOBIN 13.4 g/dl (12.0-15.5); LYMPH # 1.6 10^3/uL (1.5-5.0); MEAN CORPUSCULAR HEMOGLOBIN 32.1 pg (27.0-33.0); MEAN CORPUSCULAR HGB CONC 33.1 g/dl (32.0-36.5); MEAN CORPUSCULAR VOLUME 96.9 fl (80.0-96.0); MONO # 0.5 10^3/uL (0.0-0.8); MONO % 9.9 % (2.0-8.0); NEUTROPHILS # 2.6 10^3/uL (1.5-8.5); NEUTROPHILS % 54.6 % (36.0-66.0); PLATELET COUNT, AUTOMATED 235 10^3/uL (150-450); RED BLOOD COUNT 4.18 10^6/uL (4.00-5.40); WHITE BLOOD COUNT 4.7 10^3/uL (4.0-10.0)
[2021-07-14 11:36] LABS: ALBUMIN 3.5 GM/DL (3.2-5.2); ALT/SGPT 17 U/L (12-78); BILIRUBIN,TOTAL 0.9 MG/DL (0.2-1.0); BLOOD UREA NITROGEN 16 MG/DL (7-18); CALCIUM LEVEL 9.2 MG/DL (8.8-10.2); CARBON DIOXIDE LEVEL 29 MEQ/L (21-32); CHLORIDE LEVEL 109 MEQ/L (98-107); CHOLESTEROL LEVEL 152 MG/DL (<200); CHOLESTEROL RISK RATIO 3.102 (<5); CREATININE FOR GFR 0.84 MG/DL (0.55-1.30); GLOMERULAR FILTRATION RATE > 60.0 (>39); GLUCOSE, FASTING 106 MG/DL (70-100); HDL CHOLESTEROL 49 MG/DL (>40); LDL CHOLESTEROL 70 MG/DL (<100); NON-HDL-C 103 MG/DL; NT-PRO BNP 101 PG/ML (<125); POTASSIUM SERUM 4.1 MEQ/L (3.5-5.1); SODIUM LEVEL 142 MEQ/L (136-145); TOTAL PROTEIN 6.5 GM/DL (6.4-8.2); TRIGLYCERIDES LEVEL 165 MG/DL (<150)
[2021-07-14 11:41] LABS: VITAMIN B12 LEVEL 319 PG/ML (247-911)
== END ==
LOC: M PLALAB 08:10
PROVIDERS: ATTEND Family Medicine
DX: I10 Essential (primary) hypertension (principal); D75.89 Other specified diseases of blood and blood-forming organs; E78.5 Hyperlipidemia, unspecified; L65.9 Nonscarring hair loss, unspecified

== ENCOUNTER → 2021-07-19 | Outpatient (CLI) | payer BC ==
[~2021-07-19] MED LIST changes: +PROHANCE 279.3MG/ML 15ML VIAL ONE
== END ==
LOC: M PLAIMG 08:43
PROVIDERS: ATTEND Family Medicine
DX: N60.11 Diffuse cystic mastopathy of right breast (principal)
CPT/HCPCS: A9576; C8908

== ENCOUNTER 2021-07-24 10:10 | Outpatient (RCR) | payer BC ==
[~2021-07-24 10:10] MED LIST changes: -PROHANCE 279.3MG/ML 15ML VIAL ONE
== END 2021-08-17 ==
LOC: M PT 10:10
PROVIDERS: ATTEND Family Medicine
DX: S88.112D Complete traumatic amputation at level between knee and ankle, left lower leg, subsequent encounter (principal)

== ENCOUNTER → 2021-11-22 | Outpatient (CLI) | payer BC ==
[2021-11-22 10:55] LABS: BASO % 0.4 % (0.0-1.0); EOS # 0.1 10^3/uL (0.0-0.5); EOS % 2.7 % (0.0-3.0); HEMATOCRIT 43.7 % (36.0-47.0); HEMOGLOBIN 14.4 g/dl (12.0-15.5); LYMPH # 1.7 10^3/uL (1.5-5.0); LYMPH % 33.1 % (24.0-44.0); MEAN CORPUSCULAR HEMOGLOBIN 32.3 pg (27.0-33.0); MONO # 0.5 10^3/uL (0.0-0.8); MONO % 9.5 % (2.0-8.0); NEUTROPHILS # 2.8 10^3/uL (1.5-8.5); NEUTROPHILS % 53.9 % (36.0-66.0); PLATELET COUNT, AUTOMATED 251 10^3/uL (150-450); RED BLOOD COUNT 4.46 10^6/uL (4.00-5.40); WHITE BLOOD COUNT 5.3 10^3/uL (4.0-10.0)
[2021-11-22 11:17] LABS: ALBUMIN 3.5 GM/DL (3.2-5.2); ALT/SGPT 21 U/L (12-78); BILIRUBIN,TOTAL 0.5 MG/DL (0.2-1.0); BLOOD UREA NITROGEN 16 MG/DL (7-18); CALCIUM LEVEL 10.1 MG/DL (8.8-10.2); CARBON DIOXIDE LEVEL 29 MEQ/L (21-32); CHLORIDE LEVEL 108 MEQ/L (98-107); CHOLESTEROL LEVEL 190 MG/DL (<200); CHOLESTEROL RISK RATIO 3.015 (<5); CREATININE FOR GFR 0.83 MG/DL (0.55-1.30); GLOMERULAR FILTRATION RATE > 60.0 (>39); GLUCOSE, FASTING 106 MG/DL (70-100); HDL CHOLESTEROL 63 MG/DL (>40); LDL CHOLESTEROL 103 MG/DL (<100); NON-HDL-C 127 MG/DL; NT-PRO BNP 99 PG/ML (<125); POTASSIUM SERUM 4.3 MEQ/L (3.5-5.1); SODIUM LEVEL 140 MEQ/L (136-145); TRIGLYCERIDES LEVEL 118 MG/DL (<150)
[2021-11-24 14:58] LABS: VITAMIN B12 LEVEL 569 PG/ML (247-911)
== END ==
LOC: M PLALAB 08:02
PROVIDERS: ATTEND Family Medicine
DX: I10 Essential (primary) hypertension (principal); D75.89 Other specified diseases of blood and blood-forming organs; E78.2 Mixed hyperlipidemia; L65.9 Nonscarring hair loss, unspecified

== ENCOUNTER → 2022-02-05 | Outpatient (CLI) | payer BC | LOC: M WHC 12:37 | PROVIDERS: ATTEND Family Medicine | DX: N60.12 Diffuse cystic mastopathy of left breast (principal) | CPT/HCPCS: 77066; G0279 ==

== ENCOUNTER → 2022-05-09 | Outpatient (CLI) | payer BC, MEDICARE ==
[2022-05-09 11:54] LABS: CHOLESTEROL RISK RATIO 2.89 (<5); HDL CHOLESTEROL 65.7 MG/DL (>40); LDL CHOLESTEROL 106.1 MG/DL (<100); NON-HDL-C 124.3 MG/DL
[2022-05-09 11:55] LABS: C REACTIVE PROTEIN QUANTITATIV 0.6 MG/DL (<1.0)
[2022-05-09 11:57] LABS: FREE T4 1.04 NG/DL (0.89-1.76); THYROID STIMULATING HORMONE 1.549 uIU/ML (0.55-4.78)
[2022-05-09 12:22] LABS: HEMOGLOBIN A1c 5.2 % (4.0-6.0)
== END ==
LOC: M PLALAB 08:22
PROVIDERS: ATTEND Family Medicine
DX: E78.2 Mixed hyperlipidemia (principal); R73.01 Impaired fasting glucose; E04.2 Nontoxic multinodular goiter

== ENCOUNTER → 2022-08-10 | Outpatient (CLI) | payer BC ==
[2022-08-10 11:39] LABS: BASO % 0.3 % (0.0-1.0); EOS # 0.2 10^3/uL (0.0-0.5); HEMOGLOBIN 13.9 g/dl (12.0-15.5); LYMPH # 1.9 10^3/uL (1.5-5.0); LYMPH % 32.4 % (24.0-44.0); MEAN CORPUSCULAR HEMOGLOBIN 32.5 pg (27.0-33.0); MEAN CORPUSCULAR HGB CONC 33.1 g/dl (32.0-36.5); MEAN CORPUSCULAR VOLUME 98.1 fl (80.0-96.0); MONO # 0.6 10^3/uL (0.0-0.8); MONO % 9.8 % (2.0-8.0); NEUTROPHILS # 3.2 10^3/uL (1.5-8.5); PLATELET COUNT, AUTOMATED 278 10^3/uL (150-450); RED BLOOD COUNT 4.28 10^6/uL (4.00-5.40); WHITE BLOOD COUNT 5.9 10^3/uL (4.0-10.0)
[2022-08-10 12:13] LABS: ALBUMIN 3.6 G/DL (3.2-5.2); ALKALINE PHOSPHATASE 80 U/L (46-116); ALT/SGPT 22 U/L (7.0-40); AST/SGOT 9 U/L (<34); BILIRUBIN,TOTAL 0.9 MG/DL (0.3-1.2); BLOOD UREA NITROGEN 12 MG/DL (9-23); CALCIUM LEVEL 9.9 MG/DL (8.3-10.6); CARBON DIOXIDE LEVEL 30 MMOL/L (20-31); CHLORIDE LEVEL 107 MMOL/L (98-107); CREATININE FOR GFR 0.83 MG/DL (0.55-1.30); GLOMERULAR FILTRATION RATE > 60.0 (>39); GLUCOSE, FASTING 98 MG/DL (74-106); MAGNESIUM LEVEL 1.9 MG/DL (1.8-2.4); POTASSIUM SERUM 4.5 MMOL/L (3.5-5.1); PTH INTACT 56.8 PG/ML (18.5-88.0); SODIUM LEVEL 141 MMOL/L (136-145); TOTAL PROTEIN 6.5 G/DL (5.7-8.2)
[2022-08-10 12:14] LABS: TOTAL 25(OH) VITAMIN D 68.1 NG/ML (20.0-100.0)
[2022-08-10 12:15] LABS: FERRITIN 97.7 NG/ML (7.3-270.7)
== END ==
LOC: M PLALAB 07:51
PROVIDERS: ATTEND Family Medicine
DX: I10 Essential (primary) hypertension (principal); E55.9 Vitamin D deficiency, unspecified

== ENCOUNTER → 2022-08-15 | Outpatient (CLI) | payer BC ==
[~2022-08-15] MED LIST changes: +PROHANCE 279.3MG/ML 15ML VIAL ONE
== END ==
LOC: M PLAIMG 09:27
PROVIDERS: ATTEND Family Medicine
DX: N60.11 Diffuse cystic mastopathy of right breast (principal); N60.12 Diffuse cystic mastopathy of left breast
CPT/HCPCS: A9576; C8908

== ENCOUNTER → 2022-10-16 | Outpatient (CLI) | payer BC ==
[~2022-10-16] MED LIST changes: -PROHANCE 279.3MG/ML 15ML VIAL ONE
[2022-10-16 15:03] LABS: BASO % 0.5 % (0.0-1.0); EOS # 0.2 10^3/uL (0.0-0.5); EOS % 3.1 % (0.0-3.0); HEMATOCRIT 40.9 % (36.0-47.0); HEMOGLOBIN 13.3 g/dl (12.0-15.5); LYMPH # 1.9 10^3/uL (1.5-5.0); LYMPH % 34.8 % (24.0-44.0); MEAN CORPUSCULAR HGB CONC 32.5 g/dl (32.0-36.5); MEAN CORPUSCULAR VOLUME 98.3 fl (80.0-96.0); MONO # 0.6 10^3/uL (0.0-0.8); MONO % 10.7 % (2.0-8.0); NEUTROPHILS # 2.8 10^3/uL (1.5-8.5); NEUTROPHILS % 50.5 % (36.0-66.0); PLATELET COUNT, AUTOMATED 238 10^3/uL (150-450); RED BLOOD COUNT 4.16 10^6/uL (4.00-5.40); WHITE BLOOD COUNT 5.5 10^3/uL (4.0-10.0)
[2022-10-16 15:08] LABS: ALBUMIN 3.4 G/DL (3.2-5.2); ALKALINE PHOSPHATASE 72 U/L (46-116); ALT/SGPT 16 U/L (7.0-40); AST/SGOT < 8 U/L (<34); BILIRUBIN,TOTAL 0.7 MG/DL (0.3-1.2); BLOOD UREA NITROGEN 13 MG/DL (9-23); CALCIUM LEVEL 9.6 MG/DL (8.3-10.6); CARBON DIOXIDE LEVEL 30 MMOL/L (20-31); CHLORIDE LEVEL 107 MMOL/L (98-107); CREATININE FOR GFR 0.82 MG/DL (0.55-1.30); FERRITIN 70.4 NG/ML (7.3-270.7); GLOMERULAR FILTRATION RATE > 60.0 (>39); GLUCOSE, FASTING 101 MG/DL (74-106); MAGNESIUM LEVEL 1.8 MG/DL (1.8-2.4); POTASSIUM SERUM 4.4 MMOL/L (3.5-5.1); PTH INTACT 55.2 PG/ML (18.5-88.0); SODIUM LEVEL 142 MMOL/L (136-145); TOTAL PROTEIN 6.4 G/DL (5.7-8.2)
[2022-10-16 15:09] LABS: TOTAL 25(OH) VITAMIN D 59.8 NG/ML (20.0-100.0)
== END ==
LOC: M PLALAB 09:06
PROVIDERS: ATTEND Family Medicine
DX: E55.9 Vitamin D deficiency, unspecified (principal); I10 Essential (primary) hypertension

== ENCOUNTER → 2023-01-01 | Outpatient (CLI) | payer BC ==
[~2023-01-01] MED LIST changes: +LIDOCAINE 1% MDV 20ML VIAL As Ordered ONE
[2023-01-01 09:14] VITALS: TEMP 98.6
[2023-01-01 10:25] VITALS: BP 149/79; O2SAT 98
== END ==
LOC: M IRPRO 08:54
PROVIDERS: ATTEND Family Medicine
DX: E04.2 Nontoxic multinodular goiter (principal)

== ENCOUNTER → 2023-02-06 | Outpatient (CLI) | payer BC ==
[~2023-02-06] MED LIST changes: -LIDOCAINE 1% MDV 20ML VIAL As Ordered ONE
== END ==
LOC: M WHC 09:04
PROVIDERS: ATTEND Family Medicine
DX: N60.12 Diffuse cystic mastopathy of left breast (principal)
CPT/HCPCS: 77066; G0279

== ENCOUNTER → 2023-03-22 | Outpatient (CLI) | payer BC ==
[~2023-03-22] MED LIST changes: +IRBE150T27 PO; -IRBE150T7 PO; +IRBE75TA11; +IRBE75TA11 PO; -IRBE75TA4; -IRBE75TA4 PO
[2023-03-22 09:52] LABS: BASO % 0.7 % (0.0-1.0); EOS # 0.2 10^3/uL (0.0-0.5); EOS % 3.6 % (0.0-3.0); HEMATOCRIT 41.9 % (36.0-47.0); HEMOGLOBIN 13.9 g/dl (12.0-15.5); LYMPH # 2.2 10^3/uL (1.5-5.0); LYMPH % 38.8 % (24.0-44.0); MEAN CORPUSCULAR HEMOGLOBIN 32.5 pg (27.0-33.0); MEAN CORPUSCULAR HGB CONC 33.2 g/dl (32.0-36.5); MEAN CORPUSCULAR VOLUME 97.9 fl (80.0-96.0); MONO # 0.6 10^3/uL (0.0-0.8); MONO % 10.9 % (2.0-8.0); NEUTROPHILS # 2.6 10^3/uL (1.5-8.5); NEUTROPHILS % 45.6 % (36.0-66.0); PLATELET COUNT, AUTOMATED 239 10^3/uL (150-450); RED BLOOD COUNT 4.28 10^6/uL (4.00-5.40); WHITE BLOOD COUNT 5.6 10^3/uL (4.0-10.0)
[2023-03-22 10:06] LABS: INR 0.98; PROTHROMBIN TIME 12.7 SECONDS (12.5-14.5)
[2023-03-22 10:07] LABS: PARTIAL THROMBOPLASTIN TIME 32.4 SECONDS (24.8-34.2)
[2023-03-22 10:22] LABS: HEMOGLOBIN A1c 5.2 % (4.0-6.0)
[2023-03-22 10:28] LABS: ALBUMIN 3.4 G/DL (3.2-5.2); ALKALINE PHOSPHATASE 88 U/L (46-116); ALT/SGPT 25 U/L (7.0-40); AST/SGOT 13 U/L (<34); BILIRUBIN,TOTAL 0.7 MG/DL (0.3-1.2); BLOOD UREA NITROGEN 16 MG/DL (9-23); CALCIUM LEVEL 9.7 MG/DL (8.3-10.6); CARBON DIOXIDE LEVEL 31 MMOL/L (20-31); CHLORIDE LEVEL 108 MMOL/L (98-107); CREATININE FOR GFR 0.94 MG/DL (0.55-1.30); GLOMERULAR FILTRATION RATE > 60.0 (>39); GLUCOSE, FASTING 99 MG/DL (74-106); POTASSIUM SERUM 4.6 MMOL/L (3.5-5.1); SODIUM LEVEL 143 MMOL/L (136-145); TOTAL PROTEIN 6.3 G/DL (5.7-8.2)
[2023-03-22 10:30] LABS: FERRITIN 74.3 NG/ML (7.3-270.7)
[2023-03-26 02:07] LABS: INSULIN LEVEL 14.1 uIU/mL (2.6-24.9)
== END ==
LOC: M PLALAB 08:05
PROVIDERS: ATTEND Family Medicine
DX: K76.0 Fatty (change of) liver, not elsewhere classified (principal); I10 Essential (primary) hypertension; R73.01 Impaired fasting glucose

== ENCOUNTER → 2023-04-19 | Outpatient (CLI) | payer BC | LOC: M WHC 09:51 | PROVIDERS: ATTEND Family Medicine | DX: M85.88 Other specified disorders of bone density and structure, other site (principal) ==

== ENCOUNTER → 2023-09-23 | Outpatient (CLI) | payer BC ==
[2023-09-23 10:43] LABS: BASO % 0.5 % (0.0-1.0); EOS # 0.2 10^3/uL (0.0-0.5); EOS % 3.5 % (0.0-3.0); HEMOGLOBIN 13.9 g/dl (12.0-15.5); LYMPH # 2.1 10^3/uL (1.5-5.0); LYMPH % 36.9 % (24.0-44.0); MEAN CORPUSCULAR HEMOGLOBIN 32.9 pg (27.0-33.0); MEAN CORPUSCULAR HGB CONC 33.9 g/dl (32.0-36.5); MEAN CORPUSCULAR VOLUME 96.9 fl (80.0-96.0); MONO # 0.7 10^3/uL (0.0-0.8); MONO % 12.1 % (2.0-8.0); NEUTROPHILS # 2.7 10^3/uL (1.5-8.5); NEUTROPHILS % 46.7 % (36.0-66.0); PLATELET COUNT, AUTOMATED 235 10^3/uL (150-450); RED BLOOD COUNT 4.23 10^6/uL (4.00-5.40); WHITE BLOOD COUNT 5.7 10^3/uL (4.0-10.0)
[2023-09-23 10:50] LABS: TOTAL 25(OH) VITAMIN D 73.4 NG/ML (20.0-100.0)
[2023-09-23 10:51] LABS: THYROID STIMULATING HORMONE 1.214 uIU/ML (0.55-4.78)
[2023-09-23 10:52] LABS: ALBUMIN 3.5 G/DL (3.2-5.2); ALKALINE PHOSPHATASE 84 U/L (46-116); ALT/SGPT 18 U/L (7.0-40); AST/SGOT 11 U/L (<34); BILIRUBIN,TOTAL 0.8 MG/DL (0.3-1.2); BLOOD UREA NITROGEN 17 MG/DL (9-23); CARBON DIOXIDE LEVEL 29 MMOL/L (20-31); CHLORIDE LEVEL 109 MMOL/L (98-107); CHOLESTEROL LEVEL 179 MG/DL (<200); CREATININE FOR GFR 0.87 MG/DL (0.55-1.30); FERRITIN 66.6 NG/ML (7.3-270.7); FREE T4 1.09 NG/DL (0.89-1.76); GLOMERULAR FILTRATION RATE > 60.0 (>39); GLUCOSE, FASTING 102 MG/DL (74-106); HDL CHOLESTEROL 52.5 MG/DL (>40); LDL CHOLESTEROL 102.3 MG/DL (<100); NON-HDL-C 126.5 MG/DL; POTASSIUM SERUM 4.4 MMOL/L (3.5-5.1); PTH INTACT 62.8 PG/ML (18.5-88.0); SODIUM LEVEL 142 MMOL/L (136-145); TOTAL PROTEIN 6.3 G/DL (5.7-8.2); TRIGLYCERIDES LEVEL 121 MG/DL (<150)
== END ==
LOC: M PLALAB 08:12
PROVIDERS: ATTEND Family Medicine
DX: E55.9 Vitamin D deficiency, unspecified (principal); D75.89 Other specified diseases of blood and blood-forming organs; E04.2 Nontoxic multinodular goiter; E78.2 Mixed hyperlipidemia

== ENCOUNTER → 2024-02-10 | Outpatient (CLI) | payer BC | LOC: M WHC 09:01 | PROVIDERS: ATTEND Family Medicine | DX: Z12.31 Encounter for screening mammogram for malignant neoplasm of breast (principal); R92.333 Mammographic heterogeneous density, bilateral breasts ==

== ENCOUNTER → 2024-02-21 | Outpatient (CLI) | payer BC | LOC: M WHC 12:40 | PROVIDERS: ATTEND Family Medicine | DX: E04.2 Nontoxic multinodular goiter (principal) ==

== ENCOUNTER → 2024-03-23 | Outpatient (CLI) | payer BC ==
[2024-03-23 11:40] LABS: BASO % 0.4 % (0.0-1.0); EOS # 0.2 10^3/uL (0.0-0.5); EOS % 3.2 % (0.0-3.0); HEMOGLOBIN 13.9 g/dl (12.0-15.5); LYMPH # 1.9 10^3/uL (1.5-5.0); LYMPH % 35.2 % (24.0-44.0); MEAN CORPUSCULAR HEMOGLOBIN 32.3 pg (27.0-33.0); MEAN CORPUSCULAR HGB CONC 33.1 g/dl (32.0-36.5); MEAN CORPUSCULAR VOLUME 97.7 fl (80.0-96.0); MONO # 0.5 10^3/uL (0.0-0.8); MONO % 10.1 % (2.0-8.0); NEUTROPHILS # 2.7 10^3/uL (1.5-8.5); NEUTROPHILS % 50.7 % (36.0-66.0); PLATELET COUNT, AUTOMATED 243 10^3/uL (150-450); WHITE BLOOD COUNT 5.3 10^3/uL (4.0-10.0)
[2024-03-23 12:03] LABS: HEMOGLOBIN A1c 5.1 % (4.0-6.0)
[2024-03-23 12:10] LABS: ALBUMIN 3.4 G/DL (3.2-5.2); ALKALINE PHOSPHATASE 116 U/L (35-104); ALT/SGPT 21 U/L (7.0-40); AST/SGOT 13 U/L (<34); BILIRUBIN,TOTAL 0.6 MG/DL (0.3-1.2); BLOOD UREA NITROGEN 19 MG/DL (9-23); CALCIUM LEVEL 9.9 MG/DL (8.3-10.6); CARBON DIOXIDE LEVEL 28 MMOL/L (20-31); CHLORIDE LEVEL 110 MMOL/L (98-107); CREATININE FOR GFR 0.77 MG/DL (0.55-1.30); FERRITIN 70.6 NG/ML (7.3-270.7); GLOMERULAR FILTRATION RATE > 60.0 (>39); GLUCOSE, FASTING 90 MG/DL (74-106); POTASSIUM SERUM 4.7 MMOL/L (3.5-5.1); PTH INTACT 61.3 PG/ML (18.5-88.0); SODIUM LEVEL 145 MMOL/L (136-145); TOTAL 25(OH) VITAMIN D 77.8 NG/ML (20.0-100.0); TOTAL PROTEIN 6.7 G/DL (5.7-8.2)
== END ==
LOC: M PLALAB 08:45
PROVIDERS: ATTEND Family Medicine
DX: E55.9 Vitamin D deficiency, unspecified (principal); I10 Essential (primary) hypertension; R73.01 Impaired fasting glucose; D50.9 Iron deficiency anemia, unspecified

== ENCOUNTER → 2024-09-01 | Outpatient (CLI) | payer BC ==
[2024-09-01 12:14] LABS: BASO # 0.0 10^3/uL (0.0-0.2); BASO % 0.6 % (0.0-1.0); EOS # 0.2 10^3/uL (0.0-0.5); EOS % 3.7 % (0.0-3.0); LYMPH # 1.9 10^3/uL (1.5-5.0); LYMPH % 35.1 % (24.0-44.0); MONO # 0.6 10^3/uL (0.0-0.8); MONO % 11.8 % (2.0-8.0); NEUTROPHILS # 2.6 10^3/uL (1.5-8.5); NEUTROPHILS % 48.6 % (36.0-66.0); PLATELET COUNT, AUTOMATED 231 10^3/uL (150-450)
[2024-09-01 12:20] LABS: FREE T4 1.16 NG/DL (0.89-1.76)
[2024-09-01 12:22] LABS: ALT/SGPT 14.0 U/L (7.0-40); AST/SGOT 14.0 U/L (<34); CALCIUM LEVEL 9.6 MG/DL (8.3-10.6); CARBON DIOXIDE LEVEL 27.0 MMOL/L (20-31); CHLORIDE LEVEL 107.0 MMOL/L (98-107); CHOLESTEROL LEVEL 173.0 MG/DL (<200); CHOLESTEROL RISK RATIO 3.2 (<5); CREATININE FOR GFR 0.78 MG/DL (0.55-1.30); GLOMERULAR FILTRATION RATE 79.7 (>39); LDL CHOLESTEROL 98.3 MG/DL (<100); NON-HDL-C 119.1 MG/DL; POTASSIUM SERUM 4.3 MMOL/L (3.5-5.1); PTH INTACT 65.7 PG/ML (18.5-88.0); SODIUM LEVEL 146.0 MMOL/L (136-145); TRIGLYCERIDES LEVEL 104.0 MG/DL (<150)
[2024-09-01 12:23] LABS: TOTAL 25(OH) VITAMIN D 63.4 NG/ML (20.0-100.0)
[2024-09-01 12:29] LABS: ESTIMATED AVERAGE GLUCOSE 94.0 MG/DL (60-110)
== END ==
LOC: M PLALAB 07:23
PROVIDERS: ATTEND Family Medicine
DX: I10 Essential (primary) hypertension (principal); D50.9 Iron deficiency anemia, unspecified; R73.01 Impaired fasting glucose; E78.2 Mixed hyperlipidemia

== ENCOUNTER → 2024-09-01 | Outpatient (CLI) | payer BC ==
[2024-09-01 12:15] LABS: BASO # 0.0 10^3/uL (0.0-0.2); BASO % 0.6 % (0.0-1.0); EOS # 0.2 10^3/uL (0.0-0.5); EOS % 3.5 % (0.0-3.0); LYMPH # 1.8 10^3/uL (1.5-5.0); LYMPH % 35.3 % (24.0-44.0); MONO # 0.6 10^3/uL (0.0-0.8); MONO % 10.8 % (2.0-8.0); NEUTROPHILS # 2.5 10^3/uL (1.5-8.5); NEUTROPHILS % 49.6 % (36.0-66.0); PLATELET COUNT, AUTOMATED 219 10^3/uL (150-450)
[2024-09-01 12:41] LABS: ALT/SGPT 15 U/L (7.0-40); AST/SGOT 14 U/L (<34); CALCIUM LEVEL 9.5 MG/DL (8.3-10.6); CARBON DIOXIDE LEVEL 28 MMOL/L (20-31); CHLORIDE LEVEL 107 MMOL/L (98-107); CREATININE FOR GFR 0.78 MG/DL (0.55-1.30); GLOMERULAR FILTRATION RATE 79.7 (>39); POTASSIUM SERUM 4.5 MMOL/L (3.5-5.1); SODIUM LEVEL 145 MMOL/L (136-145)
[2024-09-01 13:10] LABS: HIV 1&2 SCREEN NEGATIVE (NEGATIVE)
== END ==
LOC: M PLALAB 08:48
PROVIDERS: ATTEND Family Medicine
DX: D86.9 Sarcoidosis, unspecified (principal)

== ENCOUNTER → 2024-09-02 | Outpatient (CLI) | payer BC | LOC: M PLAIMG 07:41 | PROVIDERS: ATTEND Family Medicine | DX: D86.9 Sarcoidosis, unspecified (principal) ==

== ENCOUNTER → 2024-09-23 | Outpatient (CLI) | payer BC ==
[2024-09-23 11:29] LABS: BASO # 0.0 10^3/uL (0.0-0.2); BASO % 0.6 % (0.0-1.0); EOS # 0.2 10^3/uL (0.0-0.5); EOS % 3.5 % (0.0-3.0); LYMPH # 2.0 10^3/uL (1.5-5.0); LYMPH % 36.2 % (24.0-44.0); MONO # 0.6 10^3/uL (0.0-0.8); MONO % 10.9 % (2.0-8.0); NEUTROPHILS # 2.6 10^3/uL (1.5-8.5); NEUTROPHILS % 48.6 % (36.0-66.0); PLATELET COUNT, AUTOMATED 227 10^3/uL (150-450)
[2024-09-23 11:47] LABS: ESTIMATED AVERAGE GLUCOSE 100.0 MG/DL (60-110)
[2024-09-23 12:01] LABS: TOTAL 25(OH) VITAMIN D 71.3 NG/ML (20.0-100.0)
[2024-09-23 12:02] LABS: ALT/SGPT 21.0 U/L (7.0-40); AST/SGOT 17.0 U/L (<34); CALCIUM LEVEL 9.8 MG/DL (8.3-10.6); CARBON DIOXIDE LEVEL 28.0 MMOL/L (20-31); CHLORIDE LEVEL 107.0 MMOL/L (98-107); CHOLESTEROL LEVEL 192.0 MG/DL (<200); CHOLESTEROL RISK RATIO 3.44 (<5); CREATININE FOR GFR 0.87 MG/DL (0.55-1.30); FREE T4 1.21 NG/DL (0.89-1.76); GLOMERULAR FILTRATION RATE 69.9 (>39); LDL CHOLESTEROL 115.4 MG/DL (<100); NON-HDL-C 136.2 MG/DL; POTASSIUM SERUM 4.7 MMOL/L (3.5-5.1); PTH INTACT 68.0 PG/ML (18.5-88.0); SODIUM LEVEL 144.0 MMOL/L (136-145); TRIGLYCERIDES LEVEL 104.0 MG/DL (<150)
[2024-09-24 11:08] LABS: INSULIN LEVEL 14.6 uIU/mL (<=18.4)
[2024-09-24 16:02] LABS: ANGIOTENSIN 1 CONVERTING ENZYM 33 U/L (9-67)
== END ==
LOC: M PLALAB 07:32
PROVIDERS: ATTEND Family Medicine
DX: E78.2 Mixed hyperlipidemia (principal); L92.9 Granulomatous disorder of the skin and subcutaneous tissue, unspecified; I10 Essential (primary) hypertension; D50.9 Iron deficiency anemia, unspecified; R73.01 Impaired fasting glucose; E55.9 Vitamin D deficiency, unspecified; K76.0 Fatty (change of) liver, not elsewhere classified

== ENCOUNTER → 2024-10-05 | Outpatient (CLI) | payer BC ==
[~2024-10-05] MED LIST changes: +VITA200012 PO
== END ==
LOC: M CARPUL 07:55
PROVIDERS: ATTEND Family Medicine
DX: L92.9 Granulomatous disorder of the skin and subcutaneous tissue, unspecified (principal)

== ENCOUNTER 2024-10-07 09:11 | Day surgery (SDC) | payer BC ==
[~2024-10-07] VITALS: Ht 165.1 cm; Wt 80.7 kg
[2024-10-07 11:14] VITALS: TEMP 97.1
[2024-10-07 11:35] VITALS: BP 141/76; O2SAT 99
== END 2024-10-07 11:42 | disposition home or self-care (01) ==
LOC: M OPP 09:11
PROVIDERS: ATTEND Internal Medicine Gastroenterology
DX: K64.0 First degree hemorrhoids (principal); K57.30 Diverticulosis of large intestine without perforation or abscess without bleeding; Z86.0100 Personal history of colon polyps, unspecified; Z79.899 Other long term (current) drug therapy

== ENCOUNTER → 2024-11-02 | Outpatient (CLI) | payer BC ==
[2024-11-02 11:24] LABS: ALT/SGPT 19.0 U/L (7.0-40); AST/SGOT 15.0 U/L (<34); CALCIUM LEVEL 9.1 MG/DL (8.3-10.6); CARBON DIOXIDE LEVEL 28.0 MMOL/L (20-31); CHLORIDE LEVEL 109.0 MMOL/L (98-107); CREATININE FOR GFR 0.81 MG/DL (0.55-1.30); GLOMERULAR FILTRATION RATE 75.7 (>39); POTASSIUM SERUM 4.3 MMOL/L (3.5-5.1); SODIUM LEVEL 143.0 MMOL/L (136-145)
== END ==
LOC: M PLALAB 07:52
PROVIDERS: ATTEND Family Medicine
DX: I10 Essential (primary) hypertension (principal)

== ENCOUNTER → 2024-11-06 | Outpatient (CLI) | payer BC ==
[~2024-11-06] MED LIST changes: +ISOVUE-370 76% 100 ML VIAL ONE
== END ==
LOC: M PLAIMG 13:58
PROVIDERS: ATTEND Family Medicine
DX: L92.9 Granulomatous disorder of the skin and subcutaneous tissue, unspecified (principal)
CPT/HCPCS: 71260; Q9967

== ENCOUNTER → 2024-11-19 | Outpatient (CLI) | payer BC ==
[~2024-11-19] MED LIST changes: -ISOVUE-370 76% 100 ML VIAL ONE; +PROHANCE 279.3MG/ML 15ML VIAL ONE
== END ==
LOC: M PLAIMG 09:45
DX: N60.12 Diffuse cystic mastopathy of left breast (principal); N60.11 Diffuse cystic mastopathy of right breast; R92.30 Dense breasts, unspecified
CPT/HCPCS: A9576; C8908

== ENCOUNTER → 2025-01-27 | Outpatient (CLI) | payer BC ==
[~2025-01-27] MED LIST changes: -PROHANCE 279.3MG/ML 15ML VIAL ONE
[2025-01-27 11:01] LABS: BASO # 0.0 10^3/uL (0.0-0.2); BASO % 0.5 % (0.0-1.0); EOS # 0.2 10^3/uL (0.0-0.5); EOS % 4.0 % (0.0-3.0); LYMPH # 2.1 10^3/uL (1.5-5.0); LYMPH % 38.1 % (24.0-44.0); MONO # 0.5 10^3/uL (0.0-0.8); MONO % 9.7 % (2.0-8.0); NEUTROPHILS # 2.6 10^3/uL (1.5-8.5); NEUTROPHILS % 47.5 % (36.0-66.0); PLATELET COUNT, AUTOMATED 252 10^3/uL (150-450)
[2025-01-27 11:31] LABS: ALT/SGPT 24.0 U/L (7.0-40); AST/SGOT 18.0 U/L (<34); CALCIUM LEVEL 9.7 MG/DL (8.3-10.6); CARBON DIOXIDE LEVEL 28.0 MMOL/L (20-31); CHLORIDE LEVEL 105.0 MMOL/L (98-107); CREATININE FOR GFR 0.82 MG/DL (0.55-1.30); GLOMERULAR FILTRATION RATE 74.6 (>39); POTASSIUM SERUM 4.6 MMOL/L (3.5-5.1); PTH INTACT 58.1 PG/ML (18.5-88.0); SODIUM LEVEL 142.0 MMOL/L (136-145)
[2025-01-27 11:36] LABS: TOTAL 25(OH) VITAMIN D 56.8 NG/ML (20.0-100.0)
[2025-01-27 11:50] LABS: ESTIMATED AVERAGE GLUCOSE 100.0 MG/DL (60-110)
[2025-01-29 11:15] LABS: INSULIN LEVEL 14.3 uIU/mL (<=18.4)
== END ==
LOC: M PLALAB 08:27
PROVIDERS: ATTEND Family Medicine
DX: I10 Essential (primary) hypertension (principal); D50.9 Iron deficiency anemia, unspecified; R73.01 Impaired fasting glucose; E55.9 Vitamin D deficiency, unspecified; K76.0 Fatty (change of) liver, not elsewhere classified